=== PATIENT | female | born 1965 | race Asian ===

== ENCOUNTER 2017-11-09 01:00 | Emergency (ER) | payer MEDICAID ==
[~2017-11-09] VITALS: Ht 157.5 cm; Wt 50.0 kg
[2017-11-09 01:06] VITALS: Ht 157.5 cm; Wt 50.0 kg
[2017-11-09 02:02] LABS: CALCIUM 8.6 mg/dL (8.5-10.1); CARBON DIOXIDE 22.8 mmol/L (21-32); CHLORIDE SERUM 106 mmol/L (98-107); CREATININE SERUM 0.9 mg/dL (0.6-1.0); GFR1 > 60 mL/min; GLUCOSE SERUM 88 mg/dL (74-106); POTASSIUM SERUM 3.5 mmol/L (3.5-5.1); SODIUM SERUM 139 mmol/L (136-145)
[2017-11-09 02:06] LABS: ALBUMIN 3.5 g/dL (3.4-5.0); ALKALINE PHOSPHATASE 57 U/L (46-116); AMYLASE 57 U/L (25-115); AST/SGOT 22 U/L (15-37); BILIRUBIN TOTAL 0.16 mg/dL (0.20-1.00); LIPASE 135 IU/L (73-393); TOTAL PROTEIN, SERUM 7.1 g/dL (6.4-8.2)
[2017-11-09 02:13] LABS: UA SPECIFIC GRAVITY 1.025 (1.005-1.035); microscopic required? YES; urine erythrocyte TRACE (NEGATIVE)
[2017-11-09 02:17] LABS: ALT/SGPT 13 U/L (14-59)
[2017-11-09 02:35] LABS: PLATELET COUNT 364 x10^3mcL (130-400)
[2017-11-09 02:39] LABS: AMPHETAMINE QUAL UR NONE DETECTED (NEG <=1000)
[2017-11-09 02:40] LABS: RED CELL DISTRIBUTION WIDTH 22.6 % (11.5-14.5)
[2017-11-09 02:48] LABS: BAND NEUTROPHIL 1 % (0-10); MONOCYTE 4 % (0-7); SEGMENTED NEUTROPHILS 71 % (37-75); rbc morphology (normal/abnorm) ABNORMAL (NORMAL)
[2017-11-09 02:49] LABS: PLATELET MORPHOLOGY PLATELETS NORMAL; ovalocyte/elliptocyte 1+; tear drop cell (dacryocyte) 1+
[2017-11-09 04:23] VITALS: BP 113/68
== END 2017-11-09 04:23 | disposition home or self-care (01) ==
LOC: ED 01:00
PROVIDERS: Emergency Medicine
DX: N39.0 Urinary tract infection, site not specified (principal); D64.9 Anemia, unspecified; J45.909 Unspecified asthma, uncomplicated; Z88.6 Allergy status to analgesic agent
CPT/HCPCS: 83880; J0696; J2405; J3010; J7030; Q0092